=== PATIENT | female | born 2000 | race African-American/Black ===

== ENCOUNTER 2019-06-29 23:02 | Emergency (ER) | payer SELFPAY ==
[~2019-06-29] VITALS: Ht 165.1 cm; Wt 52.7 kg
[2019-06-29] MEDS ORDERED: ALBU8.5H8 IH (23:06)
[2019-06-29] MEDS ORDERED: LIDOCAINE 1% 10 ML VIAL INJ ONE (23:45)
[2019-06-30] MEDS ORDERED: GELATIN SPONGE,ABSORBABLE 12-7 MM TP ONE (00:15)
[2019-06-30 01:13] VITALS: BP 117/72
[2019-06-30] MEDS ORDERED: BACITRACIN 0.9 GM PACKET OINTMENT TP ONE (01:15)
== END 2019-06-30 01:31 | disposition home or self-care (01) ==
LOC: EMS 23:04
DX: S51.811A Laceration without foreign body of right forearm, initial encounter (principal); S81.811A Laceration without foreign body, right lower leg, initial encounter; F12.90 Cannabis use, unspecified, uncomplicated; J45.909 Unspecified asthma, uncomplicated; W26.0XXA Contact with knife, initial encounter; Y93.89 Activity, other specified; Y92.89 Other specified places as the place of occurrence of the external cause; Y99.8 Other external cause status
CPT/HCPCS: 12002; 99284; J3490

== ENCOUNTER 2019-07-11 16:58 | Emergency (ER) | payer SELFPAY ==
[~2019-07-11] VITALS: Ht 165.1 cm; Wt 54.5 kg
[~2019-07-11 16:58] MED LIST: ALBU8.5H8 IH
[2019-07-11 18:23] VITALS: BP 113/68
== END 2019-07-11 18:29 | disposition home or self-care (01) ==
LOC: EMS 16:59
DX: S61.511D Laceration without foreign body of right wrist, subsequent encounter (principal); S81.811D Laceration without foreign body, right lower leg, subsequent encounter; J45.909 Unspecified asthma, uncomplicated; F12.90 Cannabis use, unspecified, uncomplicated; Z48.02 Encounter for removal of sutures; W45.8XXD Other foreign body or object entering through skin, subsequent encounter

== ENCOUNTER 2022-12-11 01:45 | Inpatient (IN) | payer MEDICAID, OTHER ==
[~2022-12-11] VITALS: Ht 165.1 cm; Wt 58.3 kg
[2022-12-11 02:46] LABS: BASOPHILS % (AUTO) 1.1 % (0.0-2.0); EOSINOPHILS % (AUTO) 9.8 % (1.0-6.0); HEMATOCRIT 41.2 % (36-46); HEMOGLOBIN 13.5 g/dL (12.0-16.0); LYMPHOCYTES # (AUTO) 1.9 K/uL (1.0-4.8); LYMPHOCYTES % (AUTO) 31.4 % (22.0-44.0); MEAN CORPUSCULAR HEMOGLOBIN 28.1 pg (26.0-34.0); MEAN CORPUSCULAR HGB CONC 32.7 G/dL (31.0-37.0); MEAN CORPUSCULAR VOLUME 86 fL (80-100); MONOCYTES # (AUTO) 0.4 K/uL (0.1-1.0); MONOCYTES % (AUTO) 6.9 % (2.0-9.0); NEUTROPHILS # (AUTO) 3.1 K/uL (1.8-7.7); NEUTROPHILS % (AUTO) 50.8 % (40.0-70.0); PLATELET COUNT (AUTO) 340 K/uL (150-450); RED CELL DISTRIBUTION WIDTH 13.8 % (11.5-14.5)
[2022-12-11 02:57] LABS: ANION GAP 10 mmol/L (8-16); CALCIUM, TOTAL 9.6 mg/dL (8.8-10.5); CARBON DIOXIDE 27 mmol/L (22-29); CHLORIDE 101 mmol/L (98-107); CREATININE 0.97 mg/dL (0.60-1.30); GLOMERULAR FILTR. RATE CALC > 60 mL/min (>60); GLUCOSE,RANDOM 108 mg/dL (70-110); POTASSIUM 3.9 mmol/L (3.5-5.1); SODIUM SERUM 138 mmol/L (136-145); UREA NITROGEN, BLOOD 11 mg/dL (7-18)
[2022-12-11 03:10] LABS: ALANINE AMINOTRANSFERASE 18 U/L (12-78); ALBUMIN 4.4 g/dL (3.4-5.0); ALKALINE PHOSPHATASE 74 U/L (46-116); ASPARTATE AMINOTRANSFERASE 17 U/L (15-37); BILIRUBIN,TOTAL 1.3 mg/dL (0.1-1.0); HCG,QUANTITATIVE < 1 mIU/mL (0-6); TOTAL PROTEIN, SERUM 8.8 g/dL (6.4-8.2)
[2022-12-11 04:41] LABS: COVID AG,FIA SOURCE NASOPHARYNGEAL
[2022-12-11] MEDS ORDERED: HALOPERIDOL 5 MG TABLET PO PRN (11:30)
[2022-12-11] MEDS ORDERED: ZOLPIDEM TARTRATE 10 MG TABLET PO PRN (11:30)
[2022-12-11] MEDS: LORazepam 2 MG TABLET PO PRN ×2 (15:10→15:26)
[2022-12-11 15:59] VITALS: BP 131/86
[2022-12-11] MEDS ORDERED: ALBUTEROL SULFATE HFA 90 MCG/PUFF 8 GM INHALER IH PRN (17:15)
[2022-12-11 20:03] VITALS: BP 128/85
[2022-12-12] MEDS: LORazepam 2 MG TABLET PO PRN (06:44)
[2022-12-12] MEDS: NICOTINE 14 MG/24 HOUR PATCH TD SCH (08:47)
[2022-12-12] MEDS ORDERED: CloNIDine HCL 0.1 MG TABLET PO PRN (12:00)
[2022-12-12] MEDS ORDERED: MAG HYDROX/AL HYDROX/SIMETH ES 30 ML SUSPENSION UDCUP PO PRN (12:00)
[2022-12-12] MEDS ORDERED: GuaiFENesin/D-METHORPHAN [SUGAR-FREE] 200-20MG/10 ML SYRUP UDCUP PO PRN (12:00)
[2022-12-12] MEDS ORDERED: ALBUTEROL SULFATE HFA 90 MCG/PUFF 8 GM INHALER IH PRN (12:00)
[2022-12-12] MEDS ORDERED: DOCUSATE SODIUM 100 MG CAPSULE PO PRN (12:00)
[2022-12-12] MEDS ORDERED: LOPERAMIDE HCL 2 MG CAPSULE PO PRN (12:00)
[2022-12-12] MEDS ORDERED: PETROLATUM,WHITE 28 GM JELLY TP PRN (12:00)
[2022-12-12] MEDS ORDERED: ACETAMINOPHEN 325 MG TABLET PO PRN (12:00)
[2022-12-12] MEDS ORDERED: IBUPROFEN 400 MG TABLET PO PRN (12:00)
[2022-12-12] MEDS ORDERED: ONDANSETRON HCL 4 MG TABLET PO PRN (12:00)
[2022-12-12] MEDS ORDERED: NICOTINE 14 MG/24 HOUR PATCH TD PRN (12:00)
[2022-12-12] MEDS ORDERED: MAGNESIUM HYDROXIDE SUSPENSION 30 ML UDCUP PO PRN (12:00)
[2022-12-12 12:04] VITALS: BP 127/86
[2022-12-12] MEDS: ESCITALOPRAM OXALATE 10 MG TABLET PO SCH (13:44)
[2022-12-12] MEDS: TraZODone HCL 50 MG TABLET PO SCH (20:02)
[2022-12-12 20:03] VITALS: BP 125/84
[2022-12-13 07:46] LABS: AMPHET/METH SCREEN,URINE NEGATIVE (NEGATIVE); BARBITURATE SCREEN, URINE NEGATIVE (NEGATIVE); BENZODIAZEPINES SCREEN,URINE NEGATIVE (NEGATIVE); CANNABINOID SCREEN,URINE POSITIVE (NEGATIVE); COCAINE SCREEN,URINE NEGATIVE (NEGATIVE); METHADONE SCREEN, URINE NEGATIVE (NEGATIVE); OPIATE SCREEN,URINE NEGATIVE (NEGATIVE); PHENCYCLIDINE SCREEN,URINE NEGATIVE (NEGATIVE)
[2022-12-13 07:47] LABS: CHOL/HDL RATIO 2.5 (3.9-5.7); FREE T4 (FREE THYROXINE) 1.18 ng/dL (0.76-1.46); THYROID STIMULATING HORMONE 0.43 uIU/mL (0.36-3.74)
[2022-12-13 07:48] LABS: HEMOGLOBIN A1C 5.1 % (3.8-5.6)
[2022-12-13] MEDS: NICOTINE 14 MG/24 HOUR PATCH TD SCH (08:26)
[2022-12-13] MEDS: ESCITALOPRAM OXALATE 10 MG TABLET PO SCH (08:26)
[2022-12-13] MEDS: LORazepam 2 MG TABLET PO PRN (08:28)
[2022-12-13 08:34] VITALS: BP 134/89
[2022-12-13 09:31] LABS: APPEARANCE,URINE HAZY (CLEAR); BILIRUBIN,URINE NEGATIVE (NEGATIVE); GLUCOSE, URINE (UA) NEGATIVE (NEGATIVE); LEUKOCYTE ESTERASE ,URINE SMALL (NEGATIVE); NITRATE,URINE NEGATIVE (NEGATIVE); OCCULT BLOOD,URINE NEGATIVE (NEGATIVE); PH,URINE 5.5 (5.0-8.0); PROTEIN,URINE 30-70 mg/dL (NEGATIVE); SPECIFIC GRAVITIY, URINE 1.026 (1.003-1.030); UROBILINOGEN,URINE <=1.0 mg/dL (<=1.0)
[2022-12-13 09:44] LABS: BACTERIA,URINE None Seen /HPF (None Seen); RBC,URINE None Seen /HPF (0-2); SQUAMOUS EPITHELIAL CELL,UR Few /LPF (None Seen)
[2022-12-13] MEDS: TraZODone HCL 50 MG TABLET PO SCH (20:18)
[2022-12-14 00:42] VITALS: BP 124/74
[2022-12-14] MEDS: LORazepam 2 MG TABLET PO PRN (07:44)
[2022-12-14] MEDS: NICOTINE 14 MG/24 HOUR PATCH TD SCH (08:19)
[2022-12-14] MEDS: ESCITALOPRAM OXALATE 10 MG TABLET PO SCH (08:19)
[2022-12-14 08:44] VITALS: BP 126/80
[2022-12-14] MEDS ORDERED: DiphenhydrAMINE HCL 50 MG/ML VIAL ONE (09:40)
[2022-12-14] MEDS ORDERED: LORazepam 2 MG/ML VIAL ONE (09:40)
[2022-12-14] MEDS ORDERED: HALOPERIDOL LACTATE 5 MG/ML VIAL ONE (09:41)
[2022-12-14] MEDS ORDERED: HALOPERIDOL LACTATE 5 MG/ML VIAL IM ONE (10:00)
[2022-12-14] MEDS ORDERED: LORazepam 2 MG/ML VIAL IM ONE (10:00)
[2022-12-14] MEDS ORDERED: DiphenhydrAMINE HCL 50 MG/ML VIAL IM ONE (10:00)
[2022-12-14 21:01] VITALS: BP 113/65
[2022-12-14] MEDS: TraZODone HCL 50 MG TABLET PO SCH (21:01)
[2022-12-15] MEDS: NICOTINE 14 MG/24 HOUR PATCH TD SCH (08:08)
[2022-12-15] MEDS: ESCITALOPRAM OXALATE 10 MG TABLET PO SCH (08:09)
[2022-12-15 08:31] VITALS: BP 119/78
[2022-12-15] MEDS ORDERED: ESCI-8 PO (09:15)
[2022-12-15] MEDS ORDERED: TRAZ-252 PO ×2 (09:17→09:32)
[2022-12-15] MEDS ORDERED: ESCI10 PO (09:32)
== END 2022-12-15 12:18 | disposition home or self-care (01) | DRG 751 ==
LOC: EMS 01:47 → B3A 11:59
PROVIDERS: ADMIT Psychiatry & Neurology Psychiatry; ATTEND Psychiatry & Neurology Psychiatry
DX: F33.2 Major depressive disorder, recurrent severe without psychotic features (principal); R45.851 Suicidal ideations; F10.10 Alcohol abuse, uncomplicated; F43.12 Post-traumatic stress disorder, chronic; G47.00 Insomnia, unspecified; Z20.822 Contact with and (suspected) exposure to COVID-19; J45.909 Unspecified asthma, uncomplicated; F41.9 Anxiety disorder, unspecified; Z79.899 Other long term (current) drug therapy; Z87.891 Personal history of nicotine dependence; Z91.51 Personal history of suicidal behavior
CPT/HCPCS: 80053; 80061; 80307; 81001; 81003; 83036; 84439; 84443; 84702; 85025; 99285; G0480; J1200; J1630; J2060